=== PATIENT | male | born 1990 | race Caucasian/White ===

== ENCOUNTER 2016-07-15 07:05 | Emergency (ER) | payer SELFPAY ==
[~2016-07-15] VITALS: Ht 180.3 cm; Wt 77.1 kg
[2016-07-15] MEDS ORDERED: Tetracaine 0.5% Opth Soln RIGHT EYE ONE (07:30)
[2016-07-15] MEDS ORDERED: Fluorescein Strips RIGHT EYE ONE ×2 (07:30→08:00)
--- NOTE | 2016-07-15 08:53 | Emergency Room Report ---
History of Present Illness General Chief Complaint: Eye Problems Source: Patient Present Illness HPI This patient states that yesterday evening he noticed his right eye was irritated. He states that he was awake all night because every time he would close his eyelid his R. eye would water and burn. He does not recall any injury or any objects going into his eye. He recalls no specific incident that occurred just prior to the eye becoming irritated. He does not wear contact lenses or glasses. There is no discharge other than watering. He has no other complaints. Allergies: Coded Allergies: No Known Allergies (Unverified , 07/15/16) Patient History Past Medical History: none, see triage record Past Surgical History: none Social History: Denies: alcohol use, drug use, smoking Reviewed Nursing Documentation: PMH: Agreed, PSxH: Agreed Nursing Documentation-PMH Past Medical History: No Stated History Review of Systems All Other Systems: negative except mentioned in HPI Physical Exam Vital Signs Date Time Temp Pulse Resp B/P Pulse Ox O2 Delivery O2 Flow Rate FiO2 07/15/16 07:14 98.1 60 16 109/65 98 Room Air Sp02 EP Interpretation: reviewed, normal General Appearance: no apparent distress, alert, GCS 15, non-toxic Head: normocephalic, atraumatic Eyes: right eye lid inflammation, right eye other - 2 tiny particles in anterior cornea over pupil., left eye normal inspection, bilateral eye EOMI, bilateral eye PERRL ENT: hearing grossly normal, normal pharynx, no angioedema, normal voice Neck: normal inspection, full range of motion Respiratory: no respiratory distress, no retraction, no accessory muscle use, speaking full sentences Rectal: deferred Musculoskeletal: gait/station normal Neurologic: alert, oriented x3, responsive, motor strength/tone normal, sensory intact, speech normal Psychiatric: judgement/insight normal, memory normal, mood/affect normal, no suicidal/homicidal ideation Skin: normal color, no rash, warm/dry, well hydrated Procedures Eye Procedure Eye Procedure : Consent: Verbal Alcaine Drops Administered: Yes Eye FB Removal: removal w/ cotton swab Eye Irrigated w/ Saline (ccs): 20 Patient Tolerated: Well Complications: None Progress Fluorescein stain and Wood's lamp was used with a cotton tip applicator to gently remove a sand sized particle from the right cornea. I then re- fluorescein stained the right cornea and re\re assessed. There is a retained tiny second particle that I was unable to remove with gentle pressure and cotton tip applicator. The corneal tissue is umbilicated in that area. Medical Decision Making Diagnostic Impression: Primary Impression: Corneal FB (foreign body) ER Course The patient had 2 tiny sand sized foreign bodies in his right cornea. There was no evidence of corneal abrasion. I was able to remove one the particle with a cotton-tipped applicator. However I was unable to remove the second smaller particle. The corneal tissue was umbilicated in that region and the will likely require a deeper excision. I was able to contact Dr. Sarkar in ophthalmology and he will see this patient today at 2:30 PM in his office for deeper excision of a foreign body. The patient was given return precautions and followup instructions. I will give the patient topical antibiotics and pain relief medication. Last Vital Signs Date Time Temp Pulse Resp B/P Pulse Ox O2 Delivery O2 Flow Rate FiO2 07/15/16 07:14 98.1 60 16 109/65 98 Room Air Disposition: HOME, SELF-CARE Condition: Improved Referrals: NOT CHOSEN SAUL/,REFERRING (PCP) JUAN TAVERAS D.O. Jul 15, 2016 08:53
[2016-07-15] MEDS ORDERED: OCUFLOX5 ML OPHTHALM (09:18)
[2016-07-15] MEDS ORDERED: IBUPROFEN600 MG ORAL (09:18)
[2016-07-15 09:40] VITALS: BP 112/65
== END 2016-07-15 09:40 | disposition home or self-care (01) ==
LOC: EMR 07:28
DX: T15.01XA Foreign body in cornea, right eye, initial encounter (principal); X58.XXXA Exposure to other specified factors, initial encounter; Y92.9 Unspecified place or not applicable; Y99.8 Other external cause status
CPT/HCPCS: 65205